=== PATIENT | female | born 1945 | race Caucasian/White ===

== ENCOUNTER 2016-12-12 07:13 | Day surgery (SDC) | payer MEDICARE, OTHER ==
[~2016-12-12] VITALS: Ht 163.8 cm; Wt 76.8 kg
[2016-12-12] VITALS (14 sets, daily range): BP systolic 122–159; BP diastolic 56–74; PULSE 58–79; RESP 14–16; TEMP 97.3–98.6; O2SAT 91–98; Ht 163.8 cm; Wt 76.8 kg
[~2016-12-12 07:13] MED LIST: ASCO500C16 PO; BISO1TAB30 PO; CITA20TA9 PO; LIDOCAINE 1% (10mg/ml) 2ml SDV INJ ONE; LIDOCAINE 1%/EPI 1:100,000 20ml MDV ONE; LR 1,000 ML IV SCH; RIVA20TA PO
--- OUTSIDE RECORDS SUMMARY | 2016-12-12 07:18 | XMS REPORT | Continuity of Care Document ---
Author Author [facility] LIVE Organization [facility] LIVE Address Unknown Phone Unavailable Support Name Relationship Address Phone BOUCHRA VALI MD Caregiver [address] [place] [address] [address] [place] [phone] GALINA NEUMANN MD Caregiver [address] [place] [address] [address] [place] [phone] SHAMAR IQBAL Next Of Kin [address] [place] [address] Insurance Providers Payer Name Policy Number Subscriber Name Relationship Medicare [id number] Jennifer Iqbal 19 Self Medicare Supp Wps [id number] Ted Iqbal 01 Spouse Advance Directives Directive Response Recorded Date/Time Ordered Resuscitation Status Full Code 09/02/14 10:34am Resuscitation Documents on File No 09/02/14 10:10am Problems No known problems or medical conditions. Medications Medication Dose Route Sig Days/Qty Instructions Order Date Discontinued Date Status Gluc Branch/Chondroitin Sulfate A 2 Cap PO DAILY 09/30/09 Active Multivitamins W-Minerals 1 Cap PO DAILY 09/30/09 Active Aspirin 81 Mg PO DAILY 09/30/09 Active Omeprazole 20 Mg PO BEFORE BREAKFAST Take 1 tablet, by mouth, one time a day with breakfast. 09/02/14 Active Bisoprolol Fumarate/Hctz 1 Tab PO DAILY 09/02/14 Active Social History Social History Problem Response Recorded Date/Time Chewing Tobacco Status No 07/02/2013 11:10am Hx Substance Use No 09/03/2014 6:25am Hx Alcohol Use Y GLASS OF WINE EVERY DAY 09/03/2014 6:25am Has the pt used tobacco in the last 12 months No 09/03/2014 6:25am Query Response Start Date Stop Date Smoking Status Former smoker Hospital Discharge Instructions No hospital discharge instructions. Plan of Care No plan of care. Functional Status No functional status results. Allergies, Adverse Reactions, Alerts Allergen Type Severity Reaction Status Last Updated Simvastatin Adverse Reaction Unknown FATIGUE Active 07/02/13 Immunizations Name Given Type Hx Influenza Vaccination Y FALL 2013 Historical Hx Pneumococcal Vaccination 2009 Historical Hx Influenza Vaccination Y FALL 2012 Historical Vital Signs Acute Vital Signs Vital Response Date/Time Temperature (Fahrenheit) 96.7 deg F (96.8 - 99.1) Temperature (Calculated Celsius) 35.49134 degrees C (36.0 - 37.3) Temperature Source Temporal Pulse Rate (adult) 56 bpm (60 - 100) Respiratory Rate 16 breaths/min (10 - 20) O2 Sat by Pulse Oximetry 97 % (90 - 100) Oxygen Delivery Method Room Air Blood Pressure 146/75 mm Hg Blood Pressure Source Automatic Cuff Height 5 ft 5.5 in Weight 176 lb Body Mass Index 28.0 kg/m^2 Results Test Source Date Result Interp. Ref. Range Comments Urine Bacteria September 03, 2014 6:50am None seen - Has specimen been collected/obtained? Y Urine RBC September 03, 2014 6:50am 3-5 /HPF H - Has specimen been collected/obtained? Y Urine WBC September 03, 2014 6:50am 1-3 /HPF - Has specimen been collected/obtained? Y Urine Blood September 03, 2014 6:50am 2+ H - Has specimen been collected /obtained? Y Urine Bilirubin September 03, 2014 6:50am Negative - Has specimen been collected/obtained? Y Urine Urobilinogen September 03, 2014 6:50am 0.2 EU/DL - Has specimen been collected/obtained? Y Urine Ketones September 03, 2014 6:50am Negative - Has specimen been collected/obtained? Y Urine Glucose (UA) September 03, 2014 6:50am Negative - Has specimen been collected/obtained? Y Urine Protein September 03, 2014 6:50am Negative - Has specimen been collected/obtained? Y Urine Nitrite September 03, 2014 6:50am Negative - Has specimen been collected/obtained? Y Urine Leukocyte Esterase September 03, 2014 6:50am 1+ H - Has specimen been collected/obtained? Y Urine pH September 03, 2014 6:50am 6.0 - Has specimen been collected/ obtained? Y Urine Specific [place] September 03, 2014 6:50am 1.025 - Has specimen been collected/obtained? Y Urine Turbidity September 03, 2014 6:50am Clear - Has specimen been collected/obtained? Y Urine Color September 03, 2014 6:50am Yellow - Has specimen been collected/obtained? Y Urine Collection Type September 03, 2014 6:50am Cleancatch-midstream - Has specimen been collected/obtained? Y Anion Gap September 03, 2014 6:24am 11 MEQ/L N 5-15 COMMENT PRE-OP WILL CALL BUN/Creatinine Ratio September 03, 2014 6:24am 19 RATIO N 6-26 COMMENT PRE-OP WILL CALL Basophils # (Auto) September 03, 2014 6:24am 0.1 T/MM3 N 0-0.2 COMMENT PRE-OP WILL CALL Basophils (%) (Auto) September 03, 2014 6:24am 0.8 % N 0-2 COMMENT PRE- OP WILL CALL Blood Urea Nitrogen September 03, 2014 6:24am 17.0 MG/DL N 7-17 COMMENT PRE-OP WILL CALL Calcium Level September 03, 2014 6:24am 9.4 MG/DL N 8.4-10.2 COMMENT PRE -OP WILL CALL Calculated Osmolality September 03, 2014 6:24am 277 MOSM/KG N 261-280 COMMENT PRE-OP WILL CALL Carbon Dioxide Level September 03, 2014 6:24am 29 MEQ/L N 22-30 COMMENT PRE-OP WILL CALL Chemistry Specimen Hemolysis September 03, 2014 6:24am < 15 0-25 0-25 : No Hemolysis.26-70: Slight Hemolysis - can falsely elevate K and Urine Protein. 71-285: Moderate Hemolysis - can falsely elevate K, Troponin I, CA 19-9, PTH, CSF GLucose, and Urine Protein, and can falsely decrease Phenytoin. 286-999: Gross Hemolysis - can falsely elevate K, Troponin I, [place] 19-9, PTH, CSF Glucose, and Urine Protine, and can falsely decrease Phenytoin. Recommend specimen recollection. Chloride Level September 03, 2014 6:24am 103 MEQ/L N 98-107 COMMENT PRE- OP WILL CALL Creatinine September 03, 2014 6:24am 0.9 MG/DL N 0.7-1.2 COMMENT PRE-OP WILL CALL Eosinophils # (Auto) September 03, 2014 6:24am 0.3 T/MM3 N 0-0.5 COMMENT PRE-OP WILL CALL Eosinophils (%) (Auto) September 03, 2014 6:24am 4.0 % N 0-4 COMMENT PRE -OP WILL CALL Glomerular Filtration Rate Calc September 03, 2014 6:24am 62 - COMMENT PRE-OP WILL CALL Glucose Level September 03, 2014 6:24am 105 MG/DL N 65-110 COMMENT PRE- OP WILL CALL Hematocrit September 03, 2014 6:24am 39.4 % N 36-46 COMMENT PRE-OP WILL CALL Hemoglobin September 03, 2014 6:24am 13.3 GM/DL N 12-16 COMMENT PRE-OP WILL CALL Icterus Index September 03, 2014 6:24am < 2 0-7 COMMENT PRE-OP WILL CALL Immature Granulocyte # (Auto) September 03, 2014 6:24am 0.01 T/MM3 N 0.00 -0.03 COMMENT PRE-OP WILL CALL Immature Granulocyte % (Auto) September 03, 2014 6:24am 0.2 % N 0.0-0.5 COMMENT PRE-OP WILL CALL Lab Scanned Report June 02, 2011 2:07pm LAB TEST FORM REQUEST [id number] - Lymphocytes # (Auto) September 03, 2014 6:24am 1.9 T/MM3 N 1-4.8 COMMENT PRE-OP WILL CALL Lymphocytes (%) (Auto) September 03, 2014 6:24am 31.2 % N 23-45 COMMENT PRE-OP WILL CALL Mean Corpuscular Hemoglobin September 03, 2014 6:24am 30.6 UUG N 26-34 COMMENT PRE-OP WILL CALL Mean Corpuscular Hemoglobin Concent September 03, 2014 6:24am 33.8 GM/DL N 31-37 COMMENT PRE-OP WILL CALL Mean Corpuscular Volume September 03, 2014 6:24am 90.6 UM3 N 80-100 COMMENT PRE-OP WILL CALL Mean Platelet Volume September 03, 2014 6:24am 10.3 UM3 N 9.4-12.4 COMMENT PRE-OP WILL CALL Monocytes # (Auto) September 03, 2014 6:24am 0.5 T/MM3 N 0-0.8 COMMENT PRE-OP WILL CALL Monocytes (%) (Auto) September 03, 2014 6:24am 7.7 % N 0-9.0 COMMENT PRE -OP WILL CALL Neutrophils # (Auto) September 03, 2014 6:24am 3.5 T/MM3 N 1.8-7.7 COMMENT PRE-OP WILL CALL Neutrophils (%) (Auto) September 03, 2014 6:24am 56.1 % N 33-66 COMMENT PRE-OP WILL CALL Platelet Count September 03, 2014 6:24am 174 T/MM3 N 130-400 COMMENT PRE -OP WILL CALL Potassium Level September 03, 2014 6:24am 3.7 MEQ/L N 3.6-5 COMMENT PRE- OP WILL CALL RDW Standard Deviation September 03, 2014 6:24am 42.7 FL N 36.9-50.2 COMMENT PRE-OP WILL CALL Red Blood Count September 03, 2014 6:24am 4.35 M/MM3 N 4.00-5.20 COMMENT PRE-OP WILL CALL Sodium Level September 03, 2014 6:24am 143 MEQ/L N 134-144 COMMENT PRE- OP WILL CALL Turbidity September 03, 2014 6:24am < 20 0-20 COMMENT PRE-OP WILL CALL White Blood Count September 03, 2014 6:24am 6.2 T/MM3 N 4.5-11.0 COMMENT PRE-OP WILL CALL Name: JENNIFER IQBAL Unit #: [id number] : 1945 Sex: F Loc / Svc: ROCIO DOS: 08/08/14 Signed Report #: [id number] DIAGNOSTIC IMAGING REPORT TYPE OF EXAM: CT ABDOMEN W/WO CONTRAST Dictated By: ROMEL SANDOVAL MD INDICATION: ITS.REASON: 223.[address] ABDOMEN W/WO CONTRAST: Comparison: May 08, 2012 Technique: Axial CT images were performed through the abdomen and pelvis before and after the administration of intravenous contrast. Delayed postcontrast images were also performed. Contrast: Omnipaque 300 100 mL Findings: Atelectasis or scarring in both lower lobes. Some areas of mild bronchiectasis are stable. 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 This is stable in appearance, measuring 2.4 cm in maximal anteroposterior dimension. No renal stone disease or hydronephrosis. Postcontrast images show a normal appearance of the liver. The gallbladder is unremarkable. The spleen, pancreas and adrenal glands are normal. Right kidney enhances normally. Left kidney is normal apart from the AML. No abdominal or pelvic lymphadenopathy. Bladder appears normal. Uterus and rectum are unremarkable. No free fluid. The small and large bowel appear normal bone windows are unremarkable. Delayed postcontrast images show no new significant findings. There is additionally a tiny cyst in the anterior aspect of the left kidney measuring 0.8 cm in size. 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 . Procedures Procedure Status Date Provider(s) CT ABD & PELV 1/> REGNS completed 08/08/14 [id number]"INFUSION, NORMAL SALINE SOLUTION , 250 CC" completed 08/08/14 [id number]"LOW OSMOLAR CONTRAST MATERIAL, 300-399 MG/ML IODINE C completed Conization of cervix completed 09/03/14 BOUCHRA VAIL MD Encounters Encounter Location Date/Time Registered Clinic [facility] 08/08/14 7:27am
--- OUTSIDE RECORDS SUMMARY | 2016-12-12 07:18 | XMS REPORT | Referral Summary ---
Author Author [facility], [facility] Care Organization [facility] Address Unknown Phone Unavailable Care Team Providers Care Software Trainer Name Role Phone Willis Starks Primary Care Physician [phone] Encounter Date(s): 04/18/15 - 04/18/15 [facility], [address] [place] [id number]- Discharge Diagnosis: Microscopic hematuria Discharge Diagnosis: Low back pain potentially associated with radiculopathy Discharge Disposition: 01-Home or Self Care Attending Physician: Beck Hui MD Admitting Physician: Beck Hui MD Vital Signs Most recent to 1 oldest [Reference Range]: Temperature Tympanic 36.1 degC [36.6-38.1 degC] *LOW* (04/18/15 12:22 PM) Peripheral Pulse 68 bpm Rate [60-100 bpm] (04/18/15 12:22 PM) Respiratory Rate 17 br/min [14-20 br/min] (04/18/15 12:22 PM) Blood Pressure 148/70 mmHg [90-140/60-90 mmHg] *HI* (04/18/15 12:22 PM) SpO2 98 % (04/18/15 12:22 PM) Problem List No data available for this section Allergies, Adverse Reactions, Alerts No Known Medication Allergies Medications Aspirin Low Dose mg, Oral, Daily, 0 Refill(s) Start Date: 04/18/15 Status: Ordered glucosamine Oral, 0 Refill(s) Start Date: 04/18/15 Status: Ordered Keflex Oral, 0 Refill(s) Start Date: 04/18/15 Status: Ordered Milton 5 mg-325 mg oral tablet 1 tabs, Oral, q4hr, as needed for pain, # 30 tabs, 0 Refill(s) Start Date: 04/18/15 Status: Ordered traMADol 50 mg oral tablet 50 mg 1 tabs, Oral, q12hr, as needed for pain, 0 Refill(s) Start Date: 04/18/15 Status: Ordered Ziac 10 mg-6.25 mg oral tablet 1 tabs, Oral, Daily, # 30 tabs, 0 Refill(s) Start Date: 04/18/15 Status: Ordered Results No data available for this section Immunizations No data available for this section Procedures Procedure Date Related Diagnosis Body Site Colonoscopic polypectomy1 12/22/14 Arthritis Cataract Cystoscopy Dilation and curettage Rotator cuff repair Tonsillectomy Tubal ligation 1Tubular adenoma 1, hyperplastic polyp 1, sigmoid diverticulosis, repeat in 5 years Social History Social History Type Response Smoking Status Never smoker Assessment and Plan Extracted from: Title: Ambulatory Patient Education Author: Beck Hui MD Date: Family Medicine Back Pain, Adult Low back pain is very common. About 1 in 5 people have back pain.The cause of low back pain is rarely dangerous. The pain often gets better over time.About half of people with a sudden onset of back pain feel better in just 2 weeks. About 8 in 10 people feel better by 6 weeks. CAUSES Some common causes of back pain include: Strain of the muscles or ligaments supporting the spine. Wear and tear (degeneration ) of the spinal discs. Arthritis. Direct injury to the back. DIAGNOSIS Most of the time, the direct cause of low back pain is not known.However, back pain can be treated effectively even when the exact cause of the pain is unknown.Answering your caregiver's questions about your overall health and symptoms is one of the most accurate ways to make sure the cause of your pain is not dangerous. If your caregiver needs more information, he or she may order lab work or imaging tests (X-rays or MRIs).However, even if imaging tests show changes in your back, this usually does not require surgery. HOME CARE INSTRUCTIONS For many people, back pain returns.Since low back pain is rarely dangerous, it is often a condition that people can learn to manageon their own. Remain active. It is stressful on the back to sit or financial services officer one place. Do not sit, drive, or financial services officer one place for more than 30 minutes at a time. Take short walks on level surfaces as soon as pain allows.Try to increase the length of time you walk each day. Do not stay in bed.Resting more than 1 or 2 days can delay your recovery. Do not avoid exercise or work.Your body is made to move.It is not dangerous to be active, even though your back may hurt.Your back will likely heal faster if you return to being active before your pain is gone. Pay attention to your body when you bend and lift. Many people have less discomfortwhen lifting if they bend their knees, keep the load close to their bodies,and avoid twisting. Often, the most comfortable positions are those that put less stress on your recovering back. Find a comfortable position to sleep. Use a firm mattress and lie on your side with your knees slightly bent. If you lie on your back, put a pillow under your knees. Only take tquf-riw-nellbvo or prescription medicines as directed by your caregiver. Fzpb-kek-qmjphjt medicines to reduce pain and inflammation are often the most helpful.Your caregiver may prescribe muscle relaxant drugs.These medicines help dull your pain so you can more quickly return to your normal activities and healthy exercise. Put ice on the injured area. Put ice in a plastic bag. Place a towel between your skin and the bag. Leave the ice on for 15-20 minutes, 03-04 times a day for the first 2 to 3 days. After that, ice and heat may be alternated to reduce pain and spasms. Ask your caregiver about trying back exercises and gentle massage. This may be of some benefit. Avoid feeling anxious or stressed.Stress increases muscle tension and can worsen back pain.It is important to recognize when you are anxious or stressed and learn ways to manage it.Exercise is a great option. SEEK MEDICAL CARE IF: You have pain that is not relieved with rest or medicine. You have pain that does not improve in 1 week. You have new symptoms. You are generally not feeling well. SEEK IMMEDIATE MEDICAL CARE IF: You have pain that radiates from your back into your legs. You develop new bowel or bladder control problems. You have unusual weakness or numbness in your arms or legs. You develop nausea or vomiting. You develop abdominal pain. You feel faint. Document Released: 09/18/2006 Document Revised: 03/19/2013 Document Reviewed: [facility] Patient Information 2014 [employer] [facility]. Follow Up With: Where: When: Marivel Starks Within 3 to 5 days, only if needed Comments: Extracted from: Title: Office Visit Note Author: Beck Hui MD Date: 04/18/15 Assessment/Plan Low back pain potentially associated with radiculopathy She will be placed on Milton 5 mg one pill every 4 hours when necessary pain number 30 with no refill. She was advised to have an MRI scan next week if her symptoms do not improve. She will follow-up with her primary care physician. Microscopic hematuria Repeat urinalysis shows 2+ blood on dipstick but only 0-1 RBC on high-power field exam. The leukocyte count is also 0-1. At this time a urine culture report is still not available from [facility]. She will follow-up with her primary care physician in this regard as needed. Orders: HYDROcodone-acetaminophen, 1 tabs, Oral, q4hr, as needed for pain, # 30 tabs, 0 Refill(s)
--- OUTSIDE RECORDS SUMMARY | 2016-12-12 07:18 | XMS REPORT | Continuity of Care Document ---
Author Author Sammy [facility] LIVE Organization [facility] LIVE Address Unknown Phone Unavailable Support Name Relationship Address Phone GALINA NEUMANN MD Caregiver [address] [place] [phone] YOSVANY DAVIS FACS, MD Caregiver [address] [place] [address] [phone] SHAMAR IQBAL Next Of Kin [address] [place], [place] [address] Insurance Providers Payer Name Policy Number Subscriber Name Relationship Medicare [id number] Jennifer Iqbal 18 Self Medicare Supp Wps [id number] Ted Iqbal 01 Spouse Advance Directives Directive Response Recorded Date/Time Ordered Resuscitation Status Full Code 12/19/14 10:37am Resuscitation Documents on File No 12/19/14 10:20am Problems No known problems or medical conditions. Medications Medication Dose Route Sig Days/Qty Instructions Order Date Discontinued Date Status Gluc Branch/Chondroitin Sulfate A 2 Cap PO DAILY 09/30/09 Active Multivitamins W-Minerals 1 Cap PO DAILY 09/30/09 Active Aspirin 81 Mg PO DAILY 09/30/09 Active Bisoprolol Fumarate/Hctz 1 Tab PO DAILY 09/02/14 Active Social History Social History Problem Response Recorded Date/Time Chewing Tobacco Status No 07/02/2013 11:10am Hx Substance Use No 12/19/2014 10:16am Hx Alcohol Use Y GLASS OF WINE EVERY DAY 12/19/2014 10:16am Has the pt used tobacco in the last 12 months No 12/19/2014 10:16am Query Response Start Date Stop Date Smoking Status Never smoker Hospital Discharge Instructions No hospital discharge instructions. Plan of Care No plan of care. Functional Status No functional status results. Allergies, Adverse Reactions, Alerts Allergen Type Severity Reaction Status Last Updated Simvastatin Adverse Reaction Unknown FATIGUE Active 07/02/13 Immunizations Name Given Type Hx Influenza Vaccination Y FALL 2013 Historical Hx Pneumococcal Vaccination Y 2009 Historical Hx Influenza Vaccination Y FALL 2013 Historical Vital Signs Acute Vital Signs Vital Response Date/Time Temperature (Fahrenheit) 98.3 deg F (96.8 - 99.1) Temperature (Calculated Celsius) 36.33353 degrees C (36.0 - 37.3) Temperature Source Temporal Pulse Rate (adult) 60 bpm (60 - 100) Respiratory Rate 16 breaths/min (10 - 20) O2 Sat by Pulse Oximetry 95 % (90 - 100) Oxygen Delivery Method Room Air Blood Pressure 144/65 mm Hg Blood Pressure Source Automatic Cuff Height 5 ft 5 in Weight 177 lb Body Mass Index 29.0 kg/m^2 Results Test Source Date Result Interp. Ref. Range Comments Anion Gap September 03, 2014 6:24am 11 [...] MEQ/L N 22-30 COMMENT PRE-OP WILL CALL Chloride Level September 03, 2014 6:24am 103 MEQ/L N 98-107 COMMENT PRE- OP WILL CALL Creatinine September 03, 2014 6:24am 0.9 MG/DL N 0.7-1.2 COMMENT PRE-OP WILL CALL Eosinophils # (Auto) September 03, 2014 6:24am 0.3 T/MM3 N 0-0.5 COMMENT PRE-OP WILL CALL Eosinophils (%) (Auto) September 03, 2014 6:24am 4.0 % N 0-4 COMMENT PRE -OP WILL CALL Glucose Level September 03, 2014 6:24am 105 MG/DL N 65-110 COMMENT PRE- OP WILL CALL Hematocrit September 03, 2014 6:24am 39.4 % N 36-46 COMMENT PRE-OP WILL CALL Hemoglobin September 03, 2014 6:24am 13.3 GM/DL N 12-16 COMMENT PRE-OP WILL CALL Lymphocytes # (Auto) September 03, 2014 6:24am [...] N 134-144 COMMENT PRE- OP WILL CALL Urine Bacteria September 03, 2014 6:50am None seen - Has specimen been collected/obtained? Y Urine Bilirubin September 03, 2014 6:50am Negative - Has specimen been collected/obtained? Y Urine Blood September 03, 2014 6:50am 2+ H - Has specimen been collected /obtained? Y Urine Collection Type September 03, 2014 6:50am Cleancatch-midstream - Has specimen been collected/obtained? Y Urine [...] - Has specimen been collected/obtained? Y Urine Specific [place] September 03, 2014 6:50am 1.025 - Has [...] - Has specimen been collected/ obtained? Y White Blood Count September 03, 2014 6:24am 6.2 T/MM3 N 4.5-11.0 COMMENT PRE-OP WILL CALL Chemistry Specimen Hemolysis [...] can falsely decrease Phenytoin. Recommend specimen recollection. Lab Scanned Report June 02, 2011 2:07pm LAB TEST FORM REQUEST [id number] - Turbidity September 03, 2014 6:24am < 20 0-20 COMMENT PRE-OP WILL CALL Glomerular Filtration Rate Calc September 03, 2014 6:24am 62 - COMMENT PRE-OP WILL CALL Immature Granulocyte # (Auto) September 03, 2014 6:24am 0.01 T/MM3 N 0.00 -0.03 COMMENT PRE-OP WILL CALL Immature Granulocyte % (Auto) September 03, 2014 6:24am 0.2 % N 0.0-0.5 COMMENT PRE-OP WILL CALL Icterus Index September 03, 2014 6:24am < 2 0-7 COMMENT PRE-OP WILL CALL Urine Culture Urine, Clean Catch-Midstream September 03, 2014 7:50am Mixed Gram Positive Organisms Procedures Procedure Status Date Provider(s) Colonoscopy with polypectomy and biopsy completed 12/22/14 YOSVANY DAVIS MD, FACS, CWS
--- OUTSIDE RECORDS SUMMARY | 2016-12-12 07:18 | XMS REPORT | Continuity of Care Document ---
Author Author [facility] Organization [facility] Address Unknown Phone Unavailable Support Name Relationship Address Phone LIAN MOLINA MD Caregiver [address] [address] Unavailable SLECHTA SEDA B DO Caregiver [address] [place] [address] Unavailable SLECHTA SEDA B DO Caregiver [address] [place] [address] Unavailable SHAMAR IQBAL Next Of Kin [address], [place] [id number] C Insurance Providers Guarantor Jennifer Iqbal Address [address] [place] [address] Email [email or web address] Payer Medicare Policy Number [id number] Subscriber's Name Jennifer Iqbal Relationship 18 Self Payer [facility] [place] [facility] Policy Number [id number] Subscriber's Name Ted Iqbal Relationship 01 Spouse Problems Active Problems Medical Problem Onset Date Status Right flank pain Unknown Acute Medications Current Home Medications Medication Dose Units Route Directions Days Qty Instructions Start Date Aspirin (Aspir 81) 81 Mg Tablet. 81 Mg Oral Daily 09/30/09 Bisoprolol Fumarate/Hctz (Ziac 10-6.25 Mg Tablet) 1 Each Tablet 1 Tab Oral Daily 09/02/14 Cephalexin (Keflex) 500 Mg Capsule 1 Cap Oral Three Times A Day 7 Days 04/17/15 Gluc Branch/Chondroitin Sulfate A (Glucosamine Chondroitin Cap) 1 Cap Capsule 2 Cap Oral Daily 09/30/09 Tramadol Hcl 50 Mg Tablet 1-2 Tab Oral Q6h/0300,0900,1500,2100 as needed for Pain 30 Tablet Take 2 (50 mg) tablets, by mouth, every 6 hours Social History Social History Problem Response Recorded Date/Time Onset Date Status Chewing Tobacco Status No 07/02/2013 11:10am Not Applicable Not Applicable Hx Substance Use No 04/16/2015 9:26pm Not Applicable Not Applicable Hx Alcohol Use N RARE 04/16/2015 9:26pm Not Applicable Not Applicable Has the pt used tobacco in the last 12 months No 12/19/2014 10:16am Not Applicable Not Applicable Tobacco Usage none 04/17/2015 5:33am Not Applicable Not Applicable Hospital Discharge Instructions Current inpatient/outpatient. Discharge instructions are currently unavailable. Plan of Care Current inpatient/outpatient. The plan of care is currently unavailable Functional Status No functional status results. Allergies, Adverse Reactions, Alerts Allergen Type Severity Reaction Status Last Updated Simvastatin Adverse Reaction Unknown FATIGUE Active 04/16/15 Immunizations Query Response on File Recorded Date/Time Hx Influenza Vaccination Y fall 201304/16/15 9:26pm Hx Pneumococcal Vaccination Y 200904/16/15 9:26pm Hx Influenza Vaccination Y fall 201304/16/15 9:26pm Vital Signs No known vital signs results. Results Laboratory Results Test Name Result Units Flags Reference Collection Date/Time Result Date/ Time Comments White Blood Count 4.0 T/MM3 L 4.5-11.0 09/19/2016 9:24am 09/19/2016 9: 28am Red Blood Count 3.49 M/MM3 L 4.00-5.20 09/19/2016 9:24am 09/19/2016 9: 28am Hemoglobin 11.9 GM/DL L 12-16 09/19/2016 9:24am 09/19/2016 9:28am Hematocrit 35.5 % L 36-46 09/19/2016 9:24am 09/19/2016 9:28am Mean Corpuscular Volume 101.7 UM3 H 80-100 09/19/2016 9:24am 09/19/2016 9:28am Mean Corpuscular Hemoglobin 34.1 UUG H 26-34 09/19/2016 9:24am 2015 9:28am Mean Corpuscular Hemoglobin Concent 33.5 GM/DL 31-37 09/19/2016 9:24am 09/19/2016 9:28am RDW Standard Deviation 48.4 FL 36.9-50.2 09/19/2016 9:24am 09/19/2016 9 :28am Platelet Count 84 T/MM3 L 130-400 09/19/2016 9:24am 09/19/2016 9:28am Mean Platelet Volume 8.1 UM3 L 9.4-12.4 09/19/2016 9:2409/19/2016 9: 28am Neutrophils (%) (Auto) 70.8 % H 33-66 09/19/2016 9:09/19/2016 9: 28am Lymphocytes (%) (Auto) 19.1 % L 23-45 09/19/2016 9:09/19/2016 9: 28am Monocytes (%) (Auto) 8.4 % 0-9.0 09/19/2016 9:09/19/2016 9:28am Eosinophils (%) (Auto) 1.5 % 0-4 09/19/2016 9:09/19/2016 9:28am Basophils (%) (Auto) 0.2 % 0-2 09/19/2016 9:09/19/2016 9:28am Immature Granulocyte % (Auto) 0.0 % 0.0-0.5 09/19/2016 9:2015 9:28am Absolute Neutrophils (auto) 2.9 T/MM3 1.8-7.7 09/19/2016 9:2015 9:28am Absolute Lymphocytes (auto) 0.8 T/MM3 L 1-4.8 09/19/2016 9:2015 9:28am Absolute Monocytes (auto) 0.3 T/MM3 0-0.8 09/19/2016 9:09/19/2016 9:28am Absolute Eosinophils (auto) 0.1 T/MM3 0-0.5 09/19/2016 9:2015 9:28am Absolute Basophils (auto) 0.0 T/MM3 0-0.2 09/19/2016 9:09/19/2016 9:28am Absolute Immature Granulocyte (auto 0.00 T/MM3 0.00-0.03 09/19/2016 9: 09/19/2016 9:28am Icterus Index < 2 0-7 09/19/2016 9:09/19/2016 9:43am Chemistry Specimen Hemolysis < 15 0-25 09/19/2016 9:2409/19/2016 9 :43am 0-25: Specimen Exhibited No Hemolysis. Turbidity < 20 0-20 09/19/2016 9:2409/19/2016 9:43am Sodium Level 143 MEQ/L 134-144 09/19/2016 9:2409/19/2016 9:43am Potassium Level 3.9 MEQ/L 3.6-5 09/19/2016 9:2409/19/2016 9:43am Chloride Level 104 MEQ/L 98-107 09/19/2016 9:2409/19/2016 9:43am Carbon Dioxide Level 32 MEQ/L H 22-30 09/19/2016 9:2409/19/2016 9: 43am Anion Gap 7 MEQ/L 5-15 09/19/2016 9:2409/19/2016 9:43am Blood Urea Nitrogen 11.0 MG/DL 7-09/19/2016 9:2409/19/2016 9: 43am Creatinine 0.8 MG/DL 0.7-1.2 09/19/2016 9:2409/19/2016 9:43am BUN/Creatinine Ratio 14 RATIO 6-26 09/19/2016 9:2409/19/2016 9:43am Glomerular Filtration Rate Calc 71 09/19/2016 9:2409/19/2016 9: 43am Glucose Level 88 MG/DL 65-110 09/19/2016 9:2409/19/2016 9:43am Calculated Osmolality 273 MOSM/KG 261-280 09/19/2016 9:2409/19/2016 9:43am Calcium Level 9.4 MG/DL 8.4-10.2 09/19/2016 9:2409/19/2016 9:43am Total Bilirubin 1.20 MG/DL 0.20-1.30 09/19/2016 9:2409/19/2016 9: 43am Alkaline Phosphatase 101 U/L 38-126 09/19/2016 9:2409/19/2016 9: 43am Total Protein 7.2 G/DL 6.3-8.2 09/19/2016 9:2409/19/2016 9:43am Albumin 4.3 G/DL 3.5-5.0 09/19/2016 9:2409/19/2016 9:43am Globulin 2.9 G/DL 2.4-3.6 09/19/2016 9:24am 09/19/2016 9:43am Albumin/Globulin Ratio 1.5 RATIO 1.1-2.2 09/19/2016 9:24am 09/19/2016 9 :43am Aspartate Amino Transf (AST/SGOT) 35 U/L 14-36 09/19/2016 9:24am 2015 9:43am Alanine Aminotransferase (ALT/SGPT) 46 U/L 9-52 09/19/2016 9:24am 09/19 9:43am Magnesium Level 1.8 MG/DL 1.6-2.3 09/19/2016 9:24am 09/19/2016 9:43am Procedures Procedure Status Date Provider(s) ULTRASOUND BREAST LIMITED Completed 08/17/16 COMPUTER DX MAMMOGRAM ADD-ON Completed 08/17/16 [id number]"DIAGNOSTIC MAMMOGRAPHY, PRODUCING DIRECT DIGITAL IMAG Completed [id number] SHOCK WAVE THERAPY; INVOLVING ELBOW EPI Completed Encounters Encounter Location Arrival/Admit Date Discharge/Depart Date Attending Provider Discharged Recurring [facility] 09/19/16 9:09am 10/01/16 11:59pm LIAN MOLINA MD Registered Clinic [facility] 08/17/16 9:16am SEDA HELM DO
--- OUTSIDE RECORDS SUMMARY | 2016-12-12 07:18 | XMS REPORT | Summary of Care ---
Author Author Red Nicolas M.D. Unknown Address [address] [place], [place] [id number] Phone Unavailable Care Team Providers Care Blue Line Trimmer Name Role Phone Red Nicolas M.D. Unavailable Unavailable Marivel Starks PP Unavailable Functional Status Functional Status Health Issues* Name Dates Details Functional status health issues are not documented Status: Cognitive Status Health Issues* Name Dates Details Cognitive status health issues are not documented Status: Problems Name Dates Details Hyperlipemia (272.4, E78.5) Status: Active Obstructive sleep apnea, adult (327.23, G47.33) Status: Active Hypertensive disorder (401.9, I10) Status: Active Low back pain (724.2, M54.5) Status: Active Abdominal pain (789.00, R10.9) Status: Active Chronic cystitis (595.2, N30.20) Status: Active Neck mass (784.2, R22.1) Status: Active Medications Name Dates Details Aspirin Childrens 81 MG Oral Tablet Chewable Red Nicolas M.D.* Started 15-Feb-2016 ActiveCipro 500 MG Oral Tablet * Refills: 0 Red Nicolas M.D.* Started 15-Feb-2016 ActiveCitalopram Hydrobromide 20 MG Oral Tablet take one tablet by mouth every day * Quantity: 30 Refills: 0 Red Nicolas M.D.* Started 15-Feb-2016 HfecphLqioxkzmxen-Lqobspskl-Xyygqezl 250-200-116.67 MG Oral Capsule TAKE 2 CAPSULE Daily * Refills: 0 Red Nicolas M.D.* Started 15-Feb-2016 ActiveMultivitamins Oral Capsule TAKE 1 CAPSULE DAILY. * Refills: 0 Red Nicolas M.D.* Started 15-Feb-2016 ActiveZiac 10-6.25 MG Oral Tablet take one tablet by mouth every day * Refills: 0 Red Nicolas M.D.* Started 15-Feb-2016 Active Allergies and Adverse Reactions Name Dates Details No Known Drug Allergies Status: Active Past Medical History Name Dates Details History of chronic cystitis (V13.00, Z87.448) Status: Resolved Procedures Procedure Dates Details History of Tubal Ligation History of Tonsillectomy History of Cystoscopy (Diagnostic) History of Cataract Surgery History of Colonoscopy (Fiberoptic) Procedures not documented Immunization Name Dates Details DT Administered on:04-Jul-2006 Zoster (Zostavax) Administered on:17-Oct-2010 Pneumo (Pneumovax) Administered on:02-Feb-2014 Prevnar 13 Intramuscular Suspension Administered on:Jan-2015 Family History Grandmother* Name Dates Details Family history of diabetes mellitus (V18.0, Z83.3) Status: Active Mother* Name Dates Details Family history of ischemic heart disease (V17.3, Z82.49) Status: Active Father* Name Dates Details Family history of congestive heart failure (V17.49, Z82.49) Status: Active Brother* Name Dates Details Family history of hypertension (V17.49, Z82.49) Status: Active Social History Name Dates Details Smoking Status* Former smoker Vital Signs Date Test Result Details 23-Feb-2016 10:32 BP Systolic 128 mm[Hg] Status: BP Diastolic 77 mm[Hg] Status: Temperature 97.9 f Status: Heart Rate 81 /min Status: Height 65 in Status: Weight 177 lb Status: Body Mass Index Calculated 29.45 kg/m2 Status: Body Surface Area Calculated 1.88 m2 Status: Results Date Description Value Details Results not documented Plan of Care Planned Observations* Name Dates Details Planned Goals not documented Goal Instructions * Instructions not documented Encounters Appointment; Red Nicolas Encounter Diagnosis: Problem not documented On 23-Feb-2016 10:00
--- OUTSIDE RECORDS SUMMARY | 2016-12-12 07:18 | XMS REPORT | Continuity of Care Document ---
Author Author [facility] Organization [facility] Address Unknown Phone Unavailable Care Team Providers Care Validation Manager Name Role Phone Raudel Marivel Primary Care Physician [phone] Source Comments Some departments are not documenting in the electronic medical record. If you do not see the information that you expected, contact Release of Information in the Health Information Management department at [phone] for further assistance in locating additional records.[facility] Active Allergies and Adverse Reactions No Known Allergies Current Medications Prescription Sig. Disp. Refills Start End Date Status Date citalopram (CELEXA) 10 mg Take 1 Tab by mouth 90 Tab 3 03/28/20 Active tablet daily. 16 bisoprolol/hydrochlorothi Take 2 Tabs by mouth 60 Tab 3 03/28/20 Active azide (ZIAC) 10/6.25 mg daily. Take 2 tabs 16 tablet (20mg/12.5mg) once daily. Multivitamins with Iron Take one tablet daily 06/28/20 Active tab 16 rivaroxaban (XARELTO) 20 Take 1 Tab by mouth 90 Tab 3 07/14/20 Active mg tablet daily. Take with food. 16 ASCORBATE CALCIUM Take 0.5 mg by mouth Active (VITAMIN C PO) daily. 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); Thrombocytopenia (HCC) 12/05/2016 Nurse Only Oncology Michael Hudson MD Acute myeloid leukemia in remission (HCC) 12/05/2016 Documentation Yakov Almazan 11/24/2016 Documentation Yakov Almazan 11/04/2016 Office Visit Cardiothoracic Surgery Dariel Hammond MD Adenocarcinoma of right lung (HCC) (Primary Dx) 11/04/2016 Hospital Radiology Dariel Hammond MD Encounter 11/04/2016 Office Visit Oncology Michael Hudson MD 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); Adenocarcinoma of right lung (HCC) 11/04/2016 Nurse Only Oncology Michael Hudson MD Acute myeloid leukemia in remission (HCC) 11/04/2016 Documentation Yakov Almazan 11/04/2016 Documentation Oncology Kenya Lima RN 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) 10/21/2016 Telephone Cardiothoracic Surgery Yarelis Mata RN General Question 10/20/2016 Cancer Cardiothoracic Surgery Dariel Hammond MD Conference 10/19/2016 Documentation Yakov Almazan 10/13/2016 [facility] Dariel Hammond MD AML (acute myeloblastic - Encounter leukemia) (HCC) 10/16/2016 10/13/2016 Surgery Dariel Hammond MD VIDEO ASSISTED THORACOSCOPY, RIGHT UPPER LOBECTOMY 10/05/2016 Nurse Only Oncology NelyjeffyEpifanio DO AML (acute myeloid leukemia) in remission (HCC) 10/05/2016 Office Visit Oncology Michael Hudson MD 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 Pandya 10/13/15 10/05/2016 Documentation Yakov Almazan 10/05/2016 Orders Only Cardiothoracic Surgery Dariel Hammond MD Solitary pulmonary nodule 10/05/2016 Orders Only Cardiothoracic Surgery Dariel Hammond MD Solitary pulmonary nodule 10/04/2016 PAC Office Anesthesiology Dariel Hammond MD Lung nodule Visit 10/04/2016 [facility] Cardiology Dariel Hammond MD Encounter 10/04/2016 Ancillary Cardiothoracic Surgery Dariel Hammond MD Paroxysmal atrial Orders fibrillation (HCC) (Primary Dx); Pre-operative cardiovascular examination 10/04/2016 Patient Profile Cardiology Kai Eldridge New Patient - Atrial Fibrillation/ pre op clearance needed for surgery 10/04/2016 Anesthesia Anthony Rodney MD Event 09/30/2016 Telephone Cardiology Sveta Albright Stress Test Instructions - Thall Stress Reviewed w/ pt, Rx meds ok in AM. Pt expresses understanding. 09/28/2016 Pre-Admit Anesthesiology Dariel Hammond MD Lung nodule ( Primary Dx) Orders Only 09/28/2016 Documentation Yakov Almazan 09/22/2016 Prep for Case Cardiothoracic Surgery Rell Oleary MD 09/20/2016 Office Visit Cardiothoracic Surgery Dariel Hammond MD Pulmonary nodule, right (Primary Dx); Paroxysmal atrial fibrillation (HCC); Pre-operative cardiovascular examination 09/20/2016 Hospital Dariel Hammond MD Encounter 09/20/2016 Hospital Radiology Dariel Hammond MD Encounter 09/20/2016 Screening Form 09/13/2016 Documentation Cardiothoracic Surgery Dariel Hammond MD Immunizations Name Dates Previously Given Next Due Flu Vaccine Trivalent >64 06/21/2016 Yo High-dose (Preservative Free) Social History Tobacco Use Types Packs/Day Years Used Date Former Smoker Cigarettes 0.75 35 Quit: 10/02/2002 Smokeless Tobacco: Never Used Alcohol Use Drinks/Week oz/Week Comments Yes 5 Glasses of 3.0 wine Last Filed Vital Signs Vital Sign Reading Time Taken Blood Pressure 128/64 12/05/2016 8:08 AM WOOD MODEL BUILDER Pulse 72 12/05/2016 8:08 AM WOOD MODEL BUILDER Temperature 36.8 C (98.3 F) 12/05/2016 8:08 AM WOOD MODEL BUILDER Respiratory Rate 12 12/05/2016 8:08 AM WOOD MODEL BUILDER Height 1.651 m (5' 5") 12/05/2016 8:08 AM WOOD MODEL BUILDER Weight 75.569 kg (166 lb 9.6 oz) 12/05/2016 8:08 AM WOOD MODEL BUILDER Body Mass Index 27.72 12/05/2016 8:08 AM WOOD MODEL BUILDER Oxygen Saturation 93% 12/05/2016 8:08 AM WOOD MODEL BUILDER Plan of Care Date Type Specialty Providers Description 12/31/2016 Appointment Oncology 02/03/2017 Appointment Oncology 02/03/2017 Appointment Oncology Donnell Malcolm MD [address] [facility] [address] [place] [address] [phone] (Fax) Health Maintenance Due Date Last Done Comments Physical (Comprehensive) 1952 Exam Pertussis Vaccine 1957 Tetanus Vaccine 1963 Breast Cancer Screening 1986 Colorectal Cancer 1996 Screening Shingles Vaccine 2006 Osteoporosis Screening 2011 Prevnar/Pneumovax (#1) 2011 Influenza Vaccine 06/02/2017 06/21/2016 Hepatitis C Screening Completed 02/29/2016 Procedures from Last 3 Months Procedure Name Priority Date/Time Associated Diagnosis Comments TELEMETRY STRIPS-SCAN 10/21/2016 Results for this 9:00 AM WOOD MODEL BUILDER procedure are in the results section. TELEMETRY STRIPS-SCAN 10/21/2016 Results for this 9:00 AM WOOD MODEL BUILDER procedure are in the results section. TELEMETRY STRIPS-SCAN 10/21/2016 Results for this 9:00 AM WOOD MODEL BUILDER procedure are in the results section. TELEMETRY STRIPS-SCAN 10/21/2016 Results for this 9:00 AM WOOD MODEL BUILDER procedure are in the results section. Results from Last 3 Months * MAGNESIUM (12/05/2016 7:55 AM) Only the most recent of 3 results within the time period is included. Component Value Range Magnesium 1.9 1.6-2.6 mg/dL Specimen Blood * COMPREHENSIVE METABOLIC PANEL (12/05/2016 7:55 AM) Only the most recent of 3 results within the time period is included. Component Value Range Sodium 139 137-147 MMOL/L Potassium 3.5 3.5-5.1 MMOL/L Chloride 108 98-110 MMOL/L Glucose 112 (H) 70-100 MG/DL Blood Urea Nitrogen 21 7-25 MG/DL Creatinine 0.85 0.4-1.00 MG/DL Calcium 9.4 8.5-10.6 MG/DL Total Protein 6.6 6.0-8.0 G/DL Total Bilirubin 1.1 0.3-1.2 MG/DL Albumin 4.1 3.5-5.0 G/DL Alk Phosphatase 82 25-110 U/L AST (SGOT) 24 7-40 U/L CO2 27 21-30 MMOL/L ALT (SGPT) 29 7-56 U/L Anion Gap 4 3-12 eGFR Non >60Comment: >60 mL/min The eGFR is not validated for use in drug dosing adjustments. Continue to use estimated creatinine clearance per dosing reference text. Please contact the Clinical Pharmacist for questions. eGFR >60Comment: >60 mL/min The eGFR is not validated for use in drug dosing adjustments. Continue to use estimated creatinine clearance per dosing reference text. Please contact the Clinical Pharmacist for questions. Specimen Blood * CBC AND DIFF (12/05/2016 7:55 AM) Only the most recent of 3 results within the time period is included. Component Value Range White Blood Cells 3.4 (L) 4.5-11.0 K/UL RBC 3.57 (L) 4.0-5.0 M/UL Hemoglobin 11.9 (L) 12.0-15.0 GM/DL Hematocrit 34.9 (L) 36-45 % MCV 97.6 80-100 FL MCH 33.3 26-34 PG MCHC 34.1 32.0-36.0 G/DL RDW 15.0 11-15 % Platelet Count 112 (L) 150-400 K/UL MPV 6.9 (L) 7-11 FL Neutrophils 64 41-77 % Lymphocytes 23 (L) 24-44 % Monocytes 10 4-12 % Eosinophils 2 0-5 % Basophils 1 0-2 % Absolute Neutrophil Count 2.20 1.8-7.0 K/UL Absolute Lymph Count 0.80 (L) 1.0-4.8 K/UL Absolute Monocyte Count 0.30 0-0.80 K/UL Absolute Eosinophil Count 0.10 0-0.45 K/UL Absolute Basophil Count 0.00 0-0.20 K/UL Specimen Blood * PATHOLOGY INTEROPERATIVE REPORT SCAN (11/08/2016 12:29 PM) Narrative Ordered by an unspecified provider. * CHEST 2 VIEWS (11/04/2016 12:38 PM) Only the most recent of 2 results within the time period is included. Impressions Resolution of previously noted small right pneumothorax.There is improving small right pleural effusion status post right upper lobectomy. Finalized by Loreta Shi M.D. on 11/04/2016 12:44 PM. Dictated by Loreta Shi M.D. on 11/04/2016 12:39 PM. Narrative CHEST 2 VIEWS CLINICAL INDICATION: Female, 71 years; pulmonary nodule, status post right VATS. COMPARISON: CXR 10/16/2016 and 10/15/2016 FINDINGS: There has been recent right upper lobectomy.Resolution of previously noted small right apical pneumothorax.Improving small right pleural effusion. The left lung is well aerated.Cardiomediastinal silhouette is stable and within normal limits. Procedure Note Interface, Radiant Results - MonNov 04, 2016 12:48 PM WOOD MODEL BUILDER CHEST 2 VIEWS CLINICAL INDICATION: Female, 71 years; pulmonary nodule, status post right VATS. COMPARISON: CXR 10/16/2016 and 10/15/2016 FINDINGS: There has been recent right upper lobectomy. Resolution of previously noted small right apical pneumothorax. Improving small right pleural effusion. The left lung is well aerated. Cardiomediastinal silhouette is stable and within normal limits. IMPRESSION Resolution of previously noted small right pneumothorax. There is improving small right pleural effusion status post right upper lobectomy. Finalized by Loreta Shi M.D. on 11/04/2016 12:44 PM. Dictated by Loreta Shi M.D. on 11/04/2016 12:39 PM. * TELEMETRY STRIPS-SCAN (10/21/2016 9:00 AM) Narrative Ordered by an unspecified provider. * TELEMETRY STRIPS-SCAN (10/21/2016 9:00 AM) Narrative Ordered by an unspecified provider. * TELEMETRY STRIPS-SCAN (10/21/2016 9:00 AM) Narrative Ordered by an unspecified provider. * TELEMETRY STRIPS-SCAN (10/21/2016 9:00 AM) Narrative Ordered by an unspecified provider. * CHEST SINGLE VIEW (10/16/2016 8:18 AM) Only the most recent of 6 results within the time period is included. Impressions Stable small right pneumothorax. Finalized by Eddie Torres M.D. on 10/16/2016 9:59 AM. Dictated by Eddie Torres M.D. on 10/16/2016 9:56 AM. Narrative Single view of the chest Clinical history: Atelectasis. Findings: Comparison chest film: 10/15/2016 Right hilar fullness is stable and may be from scarring. Left basilar scarring or atelectasis is stable. The heart size is normal without pulmonary vascular congestion. There are no consolidating infiltrates or effusions. A small right pneumothorax persists. Procedure Note Interface, Radiant Results - Sun Oct 16, 2016 10:02 AM WOOD MODEL BUILDER Single view of the chest Clinical history: Atelectasis. Findings: Comparison chest film: 10/15/2016 Right hilar fullness is stable and may be from scarring. Left basilar scarring or atelectasis is stable. The heart size is normal without pulmonary vascular congestion. There are no consolidating infiltrates or effusions. A small right pneumothorax persists. IMPRESSION Stable small right pneumothorax. Finalized by Eddie Torres M.D. on 10/16/2016 9:59 AM. Dictated by Eddie Torres M.D. on 10/16/2016 9:56 AM. * BASIC METABOLIC PANEL (10/14/2016 4:19 AM) Only the most recent of 2 results within the time period is included. Component Value Range Sodium 138 137-147 MMOL/L Potassium 3.6 3.5-5.1 MMOL/L Chloride 104 98-110 MMOL/L CO2 28 21-30 MMOL/L Anion Gap 6 3-12 Glucose 102 (H) 70-100 MG/DL Blood Urea Nitrogen 13 7-25 MG/DL Creatinine 0.68 0.4-1.00 MG/DL Calcium 8.4 (L) 8.5-10.6 MG/DL eGFR Non >60Comment: >60 mL/min The eGFR is not validated for use in drug dosing adjustments. Continue to use estimated creatinine clearance per dosing reference text. Please contact the Clinical Pharmacist for questions. eGFR >60Comment: >60 mL/min The eGFR is not validated for use in drug dosing adjustments. Continue to use estimated creatinine clearance per dosing reference text. Please contact the Clinical Pharmacist for questions. Specimen Blood * CBC (10/14/2016 4:19 AM) Only the most recent of 2 results within the time period is included. Component Value Range White Blood Cells 6.3 4.5-11.0 K/UL RBC 2.94 (L) 4.0-5.0 M/UL Hemoglobin 10.3 (L) 12.0-15.0 GM/DL Hematocrit 28.5 (L) 36-45 % MCV 97.0 80-100 FL MCH 35.0 (H) 26-34 PG MCHC 36.1 (H) 32.0-36.0 G/DL RDW 13.6 11-15 % Platelet Count 134 (L) 150-400 K/UL MPV 7.0 7-11 FL Specimen Blood * SURGICAL PATHOLOGY (10/13/2016 12:15 PM) Component Value Range PATHOLOGY REPORT [facility] [email or web address] Lizeth Cramer MD, PhD, Director of Anatomic Pathology Department of Pathology and Laboratory Medicine [address] [place] [id number] Surgical Pathology Office: [phone] SURGICAL PATHOLOGY REPORT NAME: JENNIFER IQBAL SURG PATH #: [id number] MR #: [id number] SPECIMEN CLASS: SR BILLING #: [id number] ALT ID #: LOCATION: DISCHARGED DATE OF PROCEDURE: 10/13/2016 AGE: 71 SEX: F DATE RECEIVED: 10/13/2016 : 1945 TIME RECEIVED: 12:15 PHYSICIAN: DARIEL HAMMOND MD DATE OF REPORT: 10/14/2016 COPY TO: DATE OF PRINTIN10/18/2016 Procedures/Addenda Addendum Date Ordered: 10/18/2016 Status: Signed Out Date Complete: 10/18/2016 By: Lizeth Cramer MD, Attending Physician Date Reported: 10/18/2016 Addendum Diagnosis The diagnosis remains unchanged. Addendum Comment Immunohistochemical stains show (block A3) that tumor cells are positive for TTF-1 and Napsin, supporting the diagnosis of lung adenocarcinoma. ################################################## ###################### Final Diagnosis: A. Lung and lymph node (1), "right upper lobe", lobectomy: Invasive moderately differentiated adenocarcinoma. See comment. Lymph node: There is no evidence of malignancy in 1 lymph node. (0/1) B. Lymph nodes, "level 10 A lymph node", biopsy: There is no evidence of malignancy in 1 lymph node. (0/1) C. Lymph nodes (2), "level 10 B lymph node", biopsy: There is no evidence of malignancy in 2 lymph nodes. (0/2) D. Lymph nodes (2), "level 7 lymph node", biopsy: There is no evidence of malignancy in 2 lymph nodes. (0/2) Comment: LUNG: Resection CAP Version: Lung 3.4.0.0 Specimen Lobe(s) of lung (specify): Procedure Lobectomy Specimen Laterality Right Tumor Site Upper lobe Tumor Size Greatest dimension: 1.4 cm Additional dimensions: 0.8 x 0.7 cm Tumor Focality Unifocal Histologic Type Adenocarcinoma Acinar predominant Histologic Grade G2: Moderately differentiated Visceral Pleura Invasion Not identified Tumor Extension Absent Margins If all margins uninvolved by invasive carcinoma: Distance of invasive carcinoma from closest margin: 4 cm (bronchial margin) Bronchial Margin Uninvolved by invasive carcinoma and carcinoma in situ Vascular Margin Uninvolved by invasive carcinoma Parenchymal Margin Not applicable Treatment Effect: Not applicable Tumor Associated Atelectasis or Obstructive Pneumonitis Absent Lymph-Vascular Invasion Not identified Pathologic Staging (pTNM): pT1a N0 Mx Primary Tumor (pT) pT1a: Tumor 2 cm or less in greatest dimension, surrounded by lung or visceral pleura, without bronchoscopic evidence of invasion more proximal than the lobar bronchus (ie, not in the main bronchus) Regional Lymph Nodes (pN) pN0: No regional lymph node metastasis Number of Lymph Nodes Examined:6 Number of Lymph Nodes Involved:0 Extranodal Extension Not identified Distant Metastasis (pM) (required only if confirmed pathologically in this case): Not applicable The pathologic stage assigned here should be regarded as provisional, as it reflects only current pathologic data and does not incorporate full knowledge of the patient's clinical status and/or prior pathology. Pursuant to the Ground Service Equipment Mechanic Program at the [facility] Pathology Department, selected slides from this case have been concurrently reviewed by the following pathologist: Dr. Karie Lanier who agrees with the final diagnosis. Attestation: By this signature, I attest that I have personally formulated the final interpretation expressed in this report and that the above diagnosis is based upon my examination of the slides and/or other material indicated in this report. +++Electronically Signed Out By+++ ksw/10/13/2016 Interpreted by: Lizeth Craemr MD, Attending Physician Mirza Regan MD, PhD 10/14/2016 ################################################## ###################### Material Received: A: right upper lobe B: level 10 A lymph node C: level 10 B lymph node D: level 7 lymph node History: 71-year-old female with a clinical history of lung nodule. Gross Description: A. Fixative: Fresh Labeled: "Right upper lobe for diagnosis" Weight: 258 gram Measurement: 17.7 x 14.2 x 3.9 cm Pleural surface: Red-garcia and glistening Tumor: 1.4 x 0.8 x 0.7 cm Tumor from pleura: 0.5 cm Tumor from bronchus: 4.0 cm Uninvolved lung parenchyma: Red-brown and spongy Hilar lymph nodes: Yes, ranging from 0.2 x 0.2 x 0.2 cm to 1.4 x 0.8 x 0.3 cm The external surface is inked black. Gun Club Manager sections of the specimen are submitted as follows: A1FS Gun Club Manager sections of nodule. A2 Bronchial and vascular margins. A3-A4 Remainder of the nodule. A5 Five possible intact lymph nodes. A6 One possible lymph node bisected. A7 One possible intact lymph node. ([facility]) B. Received in formalin, labeled with the patient's name and "level 10A lymph nodes is irregular, garcia-pink, anthracotic possible lymph node measuring 0.6 x 0.5 x 0.3 cm. The specimen is submitted entirely in cassettes B1. ([facility]) C. Received in formalin, labeled the patient's name and "level 10B lymph node" are multiple, irregular, garcia-pink, anthracotic possible lymph nodes measuring in aggregate 1.2 x 0.5 x 0.3 cm. The specimen is entirely submitted in cassette C1. ([facility]) D. Received in formalin, labeled with the patient's name and "level 7 lymph node" are multiple, irregular, garcia-pink, anthracotic possible lymph nodes measuring in aggregate 1.6 x 0.9 x 0.4 cm. Specimen is entirely submitted in cassette D1. ([facility]) [facility]/10/13/2016 Mirza Regan MD, PhD Intraoperative Consultation: K A1FS, lung, "right upper lobe", excision: Non-small cell carcinoma on graphic art sales representative section. Lizeth Cramer MD, Attending Physician If immunohistochemical stains and/or in situ hybridization are cited in this report, the performance characteristics were determined by the Department of Pathology and Laboratory Medicine of the [facility] ([employer]) in compliance with CLIA'88 regulations. Some of these tests rely on the use of "analyte specific reagents" and are subject to specific labeling requirements by the FDA. Known positive and negative control tissues demonstrate appropriate staining. This testing was developed by the Department of Pathology and Laboratory Medicine of the [facility]. It has not been cleared or approved by the FDA. The FDA has determined that such clearance or approval is not necessary. * TYPE & CROSSMATCH (10/13/2016 7:13 AM) Component Value Range Units Ordered 2 Crossmatch Expires 10/16/2016 Record Check FOUND ABO/RH(D) O POS Antibody Screen POS Antibody Indentification Anti-Kasia, Unit Number [id number] Blood Component Type RBC,ADSOL,LEUKO REDUCED,IRRADIATED Unit Division 0 Status OF Unit REL FROM ALLOC Transfusion Status OK TO TRANSFUSE Crossmatch Result COMPATIBLE, GEL Antigen Type (Units) Kasia antigen NEG, Unit Number [id number] Blood Component Type RBC,ADSOL,LEUKO REDUCED,IRRADIATED Unit Division 0 Status OF Unit REL FROM ALLOC Transfusion Status OK TO TRANSFUSE Crossmatch Result COMPATIBLE, GEL Specimen Blood * ANTIBODY CONSULT (10/13/2016 7:13 AM) Only the most recent of 2 results within the time period is included. Component Value Range Antibody Consult The patient's plasma contains a previously identified alloanti-K (Auberry). All other common clinically significant alloantibodies were ruled out. K negative, antihuman globulin crossmatch compatible red blood cells will be provided. 91% of the general donor population (banked blood) is compatible (K negative) with the presence of this antibody. Pathologist Signature, INTERPRETED BY RODOLFO UGALDE M.D. Antibody Consult By the PATH SIGNATURE ABOVE, I attest that I have personally formulated the final interpretation expressed in this report and that the above diagnosis is based upon my examination of the slides and/or other material indicated in this report. * PROTIME INR (PT) (10/13/2016 7:13 AM) Only the most recent of 2 results within the time period is included. Component Value Range INR 1.1 0.8-1.2 Specimen Blood * TYPE & SCREEN (NOT CROSSMATCH ELIGIBLE) (10/05/2016 11:33 AM) Component Value Range ABO/RH(D) O POS Antibody Screen POS Blood Component Type RED CELL GROUP Antibody Indentification Anti-Auberry, Antigen Information Auberry antigen NEG, * PTT (APTT) (10/05/2016 11:33 AM) Component Value Range APTT 36.4 24.0-40.0 SEC * D-SPECT REGADENOSON THALLIUM MPI STRESS TEST (10/04/2016 3:39 PM) Component Value Range Stress Dose 2.03 mCi Rest Dose 0.49 mCi Baseline HR 94 bpm Peak HR 90 bpm Baseline BP - Sys 126 mmHg Peak BP - Sys 114 mmHg PUL TO BANDAR COUNT RATIO 0.26 MPI EF 70 % LV volume 50 mL Referring Provider Marivel Starks DO Study Number [id number] Baseline BP - Hernandez 70 mmHg Peak BP - Hernandez 71 Summed Stress Score 1 Summed Rest Score 0 Nuclear Cardiology In aggregate the current study is low risk in Mortality Risk regards to predicted annual cardiovascular mortality rate. Narrative Nuclear Report [facility] Division of Nuclear Cardiac Imaging Consultation Report EXAMINATION:Gated [id number] Chloride myocardial perfusion single-photon emission computed tomography (D-SPECT) for viability, resting regional wall function, post stress ejection fraction, and perfusion imaging utilizing Regadenoson pharmacological stress. Date of Study: 10/04/16 Study#: [id number] KU KU Billing ID:[id number] Referring Physician: Marivel Starks DO Requested by: Dariel Hammond MD INDICATIONS FOR STUDY (HISTORY):This is a 71-year-old female with a history of a right upper lobe nodule undergoing preoperative risk assessment prior to thoracic surgery.This study is to look for significant inducible ischemia. PROCEDURAL DETAILS:Initially, the patient received a 5 ml intravenous infusion of Regadenoson at 0.08 mg/ml over 10 to 15 seconds. Approximately 20 seconds later 2.03 mCi of [id number] was injected.Throughout the infusion continuous electrocardiographic monitoring and serial electrocardiograms were obtained, as well as intermittent blood pressure recordings. Gated upright D-SPECT tomographic images were then acquired approximately 5 minutes after discontinuation of the regadenoson infusion. When indicated supine D-SPECT images were also obtained. The patient returned in approximately 4 hours and received an additional 0.49 mCi of [id number] Chloride as a reinjected dose to assist in the detection of myocardial ischemia and viability.Images were then reacquired and compared to post stress images. FINDINGS:Pharmacological Stress Electrocardiogram: The patient's resting heart rate was 94 bpm and the resting blood pressure was 126/70.The patient's peak stress heart rate was 90 bpm and the peak stress blood pressure was 114/71. The patient underwent a standard regadenoson protocol pharmacologic stress electrocardiogram.Baseline ECG shows sinus rhythm with T-segment flattening diffusely. With regadenoson infusion, there are no diagnostic EKG changes nor arrhythmias present.The patient complains of symptoms of shortness of breath with regadenoson infusion. Conclusion:This is a non-ischemic pharmacologic stress electrocardiogram. Mztdfctcr-ky-Dumyvihvbz Count Ratio: 0.26(normal=or < 0.52). Scintigraphic Findings: Summed Stress Score:1, Summed Rest Score:0 On review of cine images, lung uptake of radioisotope is within normal limits.There is moderate diaphragmatic attenuation present. Review of tomographic images in three orthogonal planes shows an apical inferior wall perfusion defect only noted on upright images but is no longer noted on supine images suggesting attenuation artifact.Otherwise, there is no other definite fixed or reversible perfusion defects. Review of polar coordinate maps confirm no definite fixed or reversible perfusion defects. Regional Wall Thickening and Motion Post Stress:Review of gated images shows normal left ventricular systolic function with an ejection fraction of 70%. Left Ventricular Ejection Fraction (post stress, in the resting state)= 70%. Left Ventricular End Diastolic Volume: 50 mL. SUMMARY/OPINION:This study is normal.There are no high risk adverse prognostic indicators present.Overall left ventricular systolic function is normal at 60%. This study is compared to a previous study dated March 26, 2016.On the previous study, the ejection fraction was 71%.The previous study was a stress only study and there were no perfusion defects noted on the stress portion of that study. In aggregate the current study is low risk in regards to predicted annual cardiovascular mortality rate. MD ANASTASIYA Stover/EUGENIO DT:10/05/2016 13:40:58 Job #:[id number] * PFT COMPLETE PULM FUNCTION (09/20/2016 1:05 PM) Component Value Range FVC-Pre 2.48 L FVC-%Pred-pre 83 % FEV1-Pre 1.67 L FEV1-%Pred-Pre 74 % [id number] 1.10 L/sec [id number]-%Pred-Pre 58 % VCSVC-Pre 2.48 L ICSVC-Pre 2.26 L ERVSVC-Pre 0.22 L PEF-Pre 304.2 L/min TGVPleth-Pre 3.29 L RVPleth-Pre 2.68 L RVPleth-%Pred-Pre 121 % TLCPleth-Pre 5.01 L TLCPleth-%Pred-Pre 99 % DLCOunc-Pred 20.47 ml/min/mmHg DLCOunc-Pre 13.74 ml/min/mmHg DLCOunc-%Pred-Pre 67 % DLCOunc-SD 3.75 ml/min/mmHg DLCOunc-LLN 12.97 ml/min/mmHg DLCOunc-ULN 27.97 ml/min/mmHg DLCOunc-#SD -1.796 ml/min/mmHg DLVA-Pred 4.28 ml/min/mmHg/L DLVA-Pre 3.35 ml/min/mmHg/L DLVA-%Pred-Pre 78 % DLVA-SD 0.80 ml/min/mmHg/L DLVA-LLN 2.68 ml/min/mmHg/L DLVA-ULN 5.88 ml/min/mmHg/L DLVA-#SD -1.158 ml/min/mmHg/L * NM PET SCAN TORSO (SKULL-THIGHS) (09/20/2016 11:42 AM) Impressions 1. Metabolically active right upper lobe pulmonary nodule, concerning for primary lung neoplasm or metastasis. Percutaneous biopsy is recommended. 2. 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 3. Diffuse thyroid uptake. Laboratory correlation is recommended. Approved by Rita Kulkarni D.O. on 09/20/2016 5:38 PM By my electronic signature, I attest that I have personally reviewed the images for this examination and formulated the interpretations and opinions expressed in this report Finalized by Kemal Arreola M.D. on 09/20/2016 5:39 PM. Dictated by Rita Kulkarni D.O. on 09/20/2016 5:26 PM. Narrative PET/CT NECK, CHEST, ABDOMEN AND PELVIS CLINICAL HISTORY: 8-year-old female. Right upper lobe pulmonary nodule. Acute myeloblastic leukemia. COMPARISON: CT chest 09/05/2016. CT abdomen/pelvis 04/20/2016. PET/CT 03/31/2016. RADIOPHARMACEUTICAL: 16.9 mCi IV Fluorine-18 fluorodeoxyglucose (FDG) BLOOD GLUCOSE LEVEL AT THE TIME OF RADIOPHARMACEUTICAL ADMINISTRATION: 105 mg / dL TECHNIQUE: Routine PET images ranging from the base of the skull to the upper thighs were obtained 60 minutes after IV administration of F-18 Fluorodeoxyglucose (FDG). PET images were reviewed in standard orthogonal projections. Low dose non- contrast CT imaging was performed for attenuation correction and localization purposes. FINDINGS: Mean hepatic SUV is 2.96. Physiologic uptake of F-18 Fluorodeoxyglucose (FDG) tracer is seen within the brain, heart, kidneys, bladder, and bowel. Head / Neck: Diffuse uptake in the thyroid gland is again noted. Interval decrease FDG uptake within the left parotid gland nodule with maximum SUV of 8.2 (CT image 42 ), previously 9.4. Bilateral inflammatory mucosal thickening. Chest: There is increased FDG uptake within the previously noted spiculated right upper lobe nodule with maximum SUV of 4.55 (CT image 108, index 325), previously 1.52. Mild emphysema. Tiny calcified granuloma in the right lung base. No hypermetabolic lymphadenopathy. Abdomen / Pelvis: No metabolically active nodes are visualized in the abdomen or pelvis. Unchanged left renal angiomyolipoma. Osseous Structures: No metabolically active areas are visualized in the osseous structures. 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 Right upper lobe pulmonary nodule. Acute myeloblastic leukemia. COMPARISON: CT chest 09/05/2016. CT abdomen/pelvis 04/20/2016. PET/CT 03/31/2016. RADIOPHARMACEUTICAL: 16.9 mCi IV Fluorine-18 fluorodeoxyglucose (FDG) BLOOD GLUCOSE LEVEL AT THE TIME OF RADIOPHARMACEUTICAL ADMINISTRATION: 105 mg / dL TECHNIQUE: Routine PET images ranging from the base of the skull to the upper thighs were obtained 60 minutes after IV administration of F-18 Fluorodeoxyglucose (FDG). PET images were reviewed in standard orthogonal projections. Low dose non- contrast CT imaging was performed for attenuation correction and localization purposes. FINDINGS: Mean hepatic SUV is 2.96. Physiologic uptake of F-18 Fluorodeoxyglucose (FDG) tracer is seen within the brain, heart, kidneys, bladder, and bowel. Head / Neck: Diffuse uptake in the thyroid gland is again noted. Interval decrease FDG uptake within the left parotid gland nodule with maximum SUV of 8.2 (CT image 42 ), previously 9.4. Bilateral inflammatory mucosal thickening. Chest: There is increased FDG uptake within the previously noted spiculated right upper lobe nodule with maximum SUV of 4.55 (CT image 108, index 325), previously 1.52. Mild emphysema. Tiny calcified granuloma in the right lung base. No hypermetabolic lymphadenopathy. Abdomen / Pelvis: No metabolically active nodes are visualized in the abdomen or pelvis. Unchanged left renal angiomyolipoma. Osseous Structures: No metabolically active areas are visualized in the osseous structures. IMPRESSION 1. Metabolically active right upper lobe pulmonary nodule, concerning for primary lung neoplasm or metastasis. Percutaneous biopsy is recommended. 2. 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 3. Diffuse thyroid uptake. Laboratory correlation is recommended. Approved by Rita Kulkarni D.O. on 09/20/2016 5:38 PM By my electronic signature, I attest that I have personally reviewed the images for this examination and formulated the interpretations and opinions expressed in this report Finalized by Kemal Arreola M.D. on 09/20/2016 5:39 PM. Dictated by Rita Kulkarni D.O. on 09/20/2016 5:26 PM.
--- NOTE | 2016-12-12 07:53 | ANESPREOP ---
Anesthesia Record Date and Time DATE: 12/12/16 TIME: 07:52 Pre-Op Diagnosis BCC on the Nares Proposed Surgical Procedure mohs excision NPO since: Midnight Allergies: Coded Allergies: simvastatin (Verified Adverse Reaction, Unknown, FATIGUE, 04/16/15) Ht/Wt/BMI Height: 5 ' 4.50 " Weight: 76.800 kg BMI: 28.6 kg/m2 Vital Signs Date Time Temp Pulse Resp B/P Pulse Ox O2 Delivery O2 Flow Rate FiO2 12/12/16 07:33 98.6 79 14 159/74 91 Room Air Medications Inpatient Medications Current Medications Medications (Trade) Dose Ordered Sig/David Start Time Stop Time Status Last Admin Dose Admin Lactated Ringer's (Lactated Ringers) 1,000 ml @ 50 mls/hr Q20H 12/12/16 07:00 Fentanyl (Fentanyl) 25-50MCG IV PUSH NOT... PRN PRN 12/12/16 09:00 Midazolam HCl (Versed) 0.5-3MG IV PUSH EVERY 10 MIN PRN PRN PRN 12/12/16 09:00 Ascorbic Acid (Vitamin C) 500 Mg Capsule.er, 1 CAP PO BID, (Reported) Bisoprolol Fumarate/Hctz (Ziac 10-6.25 mg Tablet) 1 Each Tablet, 2 TAB PO DAILY, (Reported) Citalopram Hydrobromide (Citalopram HBr) 20 Mg Tablet, 1 TAB PO DAILY, (Reported ) Rivaroxaban (Xarelto) 20 Mg Tablet, 1 TAB PO DAILY, (Reported) Last Taken: on 12/08/16 Currently on Beta Nathaniel: Yes Beta Nathaniel Last Taken: Bisoprolol Medical/Surgical History Anesthesia PMH: Reports: *Hypertension, Arthritis (OSTEOARTHRITIS OF THE NECK, KNEES), Cancer (LUNG CA,SKIN), Cardiac Arrythmia (Afib new on set in October or 2016/ follows with a cardialogist in [place]), Reflux (OCCASIONAL), Sleep Apnea (CPAP), Denies: *Angina, *Diabetes, *Dyspnea, *DE, Anesthesia Reactions ( SLOW TO AWAKEN, NO AIRWAY ISSUES KNOWN), Asthma, Blood Transfusion Reac, CHF, COPD, CVA/Stroke/TIA, Deep Vein Thrombosis, Glaucoma, Hepatitis, Hiatal Hernia, Malignant Hyperthermia, Pneumonia, Renal Disease (ANGIOMYELOLIPOMA ON LT KIDNEY- BENIGN CYST ON KIDNEY), Seizures, Thyroid Disease, Tuberculosis Smoking Status: Former smoker (Quit 14 years ago) Has pt. smoked today?: No Use Chewing Tobacco?: No Second Hand Exposure: No Substance Use Type: does not use Alcohol Intake: none HX of Last Menstrual Period: 1993 Past Surgical History Orthopedic Surgeries: Yes - R SHOULDER SCOPE Abdominal Surgeries: No Genitourinary Surgeries: Yes - CYSTOS WITH LASER PROCEDURE FOR IC Cardiac Surgeries: No Endocrine Surgeries: Yes Reproductive Surgeries: Yes - D&C, TUBAL LIGATION-1975, [facility] BX Neurological Surgeries: No Ear Surgeries: No Nose Surgeries: No Throat Surgeries: Yes - T+A Other Surgeries: Yes - WANDA CATARACTS, TOP R LOBE LUNG REMOVED Anesthesia Adverse Reactions: FOUND none Family Hx of Anesthesia Advers: none Hx of Motion Sickness: No Pertinent Findings EKG Rhythm: Sinus Rhythm Physical Exam Respiratory: Lungs clear Cardiovascular: FOUND Regular rate, rhythm Airway Assessment Mallampati Score: II TMD: 3 Fingerbreadths Neck Extension: Good Overall Assessment: No Airway Concerns ASA: 3 Plan Anesthesia Plan: MAC Discussion Discussed risks/options/alternatives of anesthesia and questions answered. Patient consents. Nursing pain assessment noted. Attestation Statement Prior to the delivery of any anesthetic medication, I examined the patient, developed the plan, obtained the patient's consent and discussed the risk and benefits of the procedure with the patient/guardian. TIMO RIVERA BUSINESS DEVELOPMENT ENGINEER Dec 12, 2016 07:53
[2016-12-12 07:55] LABS: BASOPHILS % (AUTO) 0.3 % (0-2); EOSINOPHILS # (AUTO) 0.1 T/MM3 (0-0.5); EOSINOPHILS % (AUTO) 2.5 % (0-4); HCT - HEMATOCRIT 35.7 % (36-46); IMMATURE GRANULOCYTE # (AUTO) 0.01 T/MM3 (0.00-0.03); IMMATURE GRANULOCYTE % (AUTO) 0.3 % (0.0-0.5); LYMPHOCYTES % (AUTO) 31.3 % (23-45); MEAN CORPUSCULAR HGB 33.5 UUG (26-34); MEAN CORPUSCULAR HGB CONC(MCHC 33.6 GM/DL (31-37); MEAN CORPUSCULAR VOLUME 99.7 UM3 (80-100); MEAN PLATELET VOLUME 8.7 UM3 (9.4-12.4); MONOCYTES # (AUTO) 0.3 T/MM3 (0-0.8); MONOCYTES % (AUTO) 8.4 % (0-9.0); NEUTROPHILS #(AUTO)-ABSOLUTE 1.9 T/MM3 (1.8-7.7); NEUTROPHILS % (AUTO) 57.2 % (33-66); RED BLOOD COUNT 3.58 M/MM3 (4.00-5.20); WBC - WHITE BLOOD COUNT 3.2 T/MM3 (4.5-11.0)
[2016-12-12] MEDS ORDERED: CEFAZOLIN 1 GRAM INJECTION IV ONE (08:00)
[2016-12-12 08:05] LABS: ANION GAP 11 MEQ/L (5-15); BUN/CREATININE RATIO 24 RATIO (6-26); CALCIUM 9.6 MG/DL (8.4-10.2); CHLORIDE 110 MEQ/L (98-107); CO2 - CARBON DIOXIDE 26 MEQ/L (22-30); CREATININE 0.8 MG/DL (0.7-1.2); GLOMERULAR FILTRATION RATE 71; GLUCOSE 105 MG/DL (65-110); POTASSIUM 3.5 MEQ/L (3.6-5); SODIUM 147 MEQ/L (134-144)
[2016-12-12] MEDS ORDERED: FENTANYL 100mcg/2ml INJECTION IV PRN (09:00)
[2016-12-12] MEDS ORDERED: MIDAZOLAM 5mg/5ml INJECTION IV PRN (09:00)
[2016-12-12] MEDS ORDERED: FENTANYL 100mcg/2ml INJECTION ONE (09:28)
[2016-12-12] MEDS ORDERED: MIDAZOLAM 2mg/2ml INJECTION ONE (09:29)
--- NOTE | 2016-12-12 10:07 | PDPROCED ---
Procedure Note Date 12/12/16 Procedure Name Mohs excision BCC left nasal dorsum with local bilobed flap closure: Lesion size 0.9 cm, excision and final defect 1.5 cm Procedure Detail Preop dx: BCC left nasal dorsum Postop dx: Same Anesthesia: MAC EBL: Less than 15 ml Case: Clean Complications: None LONG SULLIVAN MD Dec 12, 2016 10:07
[2016-12-12] MEDS ORDERED: CEPH-583 PO (10:12)
[2016-12-12] MEDS ORDERED: ACET1TAB12 PO (10:12)
[2016-12-12] MEDS ORDERED: HYDROCODONE/APAP 5 mg/325 mg TABLET PO PRN (10:15)
[2016-12-12] MEDS ORDERED: PROMETHAZINE 25 MG INJECTION IV PRN (10:15)
[2016-12-12] MEDS ORDERED: ATROPINE 1mg/10ml Syringe IV PRN (10:15)
--- NOTE | 2016-12-12 10:18 | ANESPO ---
Post-Op Note Date 12/12/16 Time: 10:17 Status Pt Participated in Evaluation: Pt participated in person Vital Signs Date Time Temp Pulse Resp B/P Pulse Ox O2 Delivery O2 Flow Rate FiO2 12/12/16 09:15 66 16 125/67 93 Nasal Cannula 1.00 12/12/16 09:11 98.3 Respiratory Function: Airway patent, Regular respirations Cardiovascular Function: Regular pulse Telemetry Pattern: SR Mental Status: Alert/oriented Pain Level Intensity: 0 Hydration: Taking po fluids Complications during Recovery None apparent Follow-Up Instructions Instructions Per Surgeon EBER CARRERA CRNA Dec 12, 2016 10:18
--- NOTE | 2016-12-12 11:20 | NUR ---
0830 DR. SULLIVAN TO PREOP AREA TO INTERVIEW AND FABRICE PT. ANTIBIOTIC GIVEN IV ORDERED BY DR. SULLIVAN.. VERSED GIVEN AT 0842 BY PREOP RN ORDERED BY DR. SULLIVAN. TIMEOUT PERFORMED BY SURGICAL TEAM AT 0845. SURGICAL SITE PREPPED WITH 3% CHLOROXYLENOL BY DR. SULLIVAN AND THEN INJECTED WITH 1% LIDOCAINE WITH EPI 1:100,000. LESION EXCISED AT 0849 AND SENT TO PATHOLOGY LABELED FOLLOWS: ACCESSION NUMBER [id number] BASAL CELL CARCINOMA LEFT NASAL DORSUM WITH NEEDLE AT 1200.. BOVIE USED AT HIGHEST SETTING OF 20. PROCEDURE ENDED AND SURGICAL SITE COVERED WITH STERILE GAUZE. PT. TOLERATED PROCEDURE WELL.
[2016-12-12] MEDS ORDERED: BALANCED SALT SOLUTION 15ml IRRIGATION IO ONE (12:00)
--- NOTE | 2016-12-12 20:59 | OPNOTEF ---
DATE OF SURGERY December 12, 2016 SURGEON Kenya Khalil MD PREOPERATIVE DIAGNOSIS Basal cell carcinoma, left nasal dorsum. POSTOPERATIVE DIAGNOSIS Basal cell carcinoma, left nasal dorsum. OPERATION Mohs excision of basal cell carcinoma, left nasal dorsum, with local bilobed flap closure. Lesion size was 0.9 cm. Excision of final defect 1.5 cm. ANESTHESIA MAC INDICATIONS The patient is a 71-year-old woman who presented with a lesion of her left nasal dorsum of several years' duration. Efudex cream had been applied in the past. It began to change appearance over the past year, becoming red and occasionally bleeding. Punch biopsy obtained in August 2016 showed a multifocal, superficial basal cell carcinoma extending to the side margins. 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 She has recovered well and is now ready to proceed with the nasal procedure. On exam, she had a 0.9 cm erythematous, raised and pearly lesion with telangiectasia of the left nasal dorsum. In a detailed discussion with the patient preoperatively, the risks, benefits and alternatives of Mohs excision of this lesion and closure were reviewed including, but not limited to, bleeding, infection, poor or keloid scarring, partial and/or complete loss of the flap and/or graft, residual and/or recurrent disease. The patient understood and wished to proceed. PROCEDURE The patient was marked preoperatively and then, after suitable IV sedation, the face was prepped and draped in the usual sterile manner. Of note, she received 1 g of Ancef preoperatively and worse sequential stockings throughout. The involved area was then infiltrated with 1% lidocaine with epinephrine. The lesion was then excised with beveled margins and handed off as a specimen with a tag at the 12 o'clock margin. Subsequent Mohs pathologic evaluation revealed basal cell carcinoma with clear margins. She was then brought to the operating room and again prepped and draped in the usual sterile manner. A local bilobed flap was then designed, incised, elevated and advanced into the defect. This was then closed in two layers using interrupted buried sutures of 5-0 Vicryl and interrupted 6-0 nylon. Benzoin and Steri-Strips were applied as well as a dry sterile dressing and Mefix tape. The patient was then brought to the recovery room in stable condition. Estimated blood loss was less than 50 mL. The case was clean. Specimens: Basal cell carcinoma of the left nasal dorsum. Medical clearance was obtained from Dr. Michael Hudson and Dr. Marivel Starks. [facility]
== END 2016-12-12 11:17 | disposition home or self-care (01) ==
LOC: SCU 07:13
PROVIDERS: ATTEND Surgery Plastic and Reconstructive Surgery
DX: C44.311 Basal cell carcinoma of skin of nose (principal)
CPT/HCPCS: 14060; 80048; 85025; 88305; 88331; 88332; J0690; J2250; J3010; J7120